=== PATIENT | male | born 2000 | race Caucasian/White ===

== ENCOUNTER 2022-10-16 23:08 | Emergency (ER) | payer BC ==
[~2022-10-16] VITALS: Ht 182.9 cm; Wt 77.3 kg
[2022-10-16 23:16] VITALS: BP 120/61
[2022-10-17] MEDS ORDERED: HYDROcodone/acetaminophen 10/325mg tab PO ONE (00:20)
[2022-10-17] MEDS ORDERED: ketorolac trometh inj. 60 MG/2 ML VIAL IM ONE (00:20)
[2022-10-17] MEDS ORDERED: cephalexin 250mg capsule PO ONE (00:20)
[2022-10-17] MEDS ORDERED: CEPH-585 PO (00:28)
[2022-10-17] MEDS ORDERED: BACI28.42 TOP (00:28)
[2022-10-17] MEDS ORDERED: IBUP-1986 PO (00:28)
[2022-10-17] MEDS ORDERED: SULF1TAB45 PO (17:30)
== END 2022-10-17 00:32 | disposition home or self-care (01) ==
LOC: ER 23:11 → EDBD 23:11 → ER 10-17 00:32
DX: S80.812A Abrasion, left lower leg, initial encounter (principal); S80.811A Abrasion, right lower leg, initial encounter; L03.116 Cellulitis of left lower limb; L03.115 Cellulitis of right lower limb; Z72.89 Other problems related to lifestyle; X50.0XXA Overexertion from strenuous movement or load, initial encounter; Y93.89 Activity, other specified; Y92.89 Other specified places as the place of occurrence of the external cause; Y99.8 Other external cause status
CPT/HCPCS: 96372; 99283; A6222; A6223; J1885; J7030; A6446; A6449

== ENCOUNTER 2022-10-17 16:12 | Emergency (ER) | payer BC, OTHER ==
[~2022-10-17] VITALS: Ht 180.3 cm; Wt 70.5 kg
[~2022-10-17 16:12] MED LIST: BACI28.42 TOP; CEPH-585 PO; IBUP-1986 PO
[2022-10-17] MEDS ORDERED: SULF1TAB45 PO (17:30)
[2022-10-17] MEDS ORDERED: sulfamethoxazole/trimethoprim DS (800/160mg) tablet PO ONE (17:35)
[2022-10-17] MEDS ORDERED: bacitracin 15gm ointment TP ONE (17:35)
[2022-10-17 17:57] VITALS: BP 109/54
== END 2022-10-17 17:59 | disposition home or self-care (01) ==
LOC: ER 16:13
DX: S80.812A Abrasion, left lower leg, initial encounter (principal); S80.811A Abrasion, right lower leg, initial encounter; L03.115 Cellulitis of right lower limb; L03.116 Cellulitis of left lower limb; Z91.018 Allergy to other foods; X58.XXXA Exposure to other specified factors, initial encounter; Y93.89 Activity, other specified; Y92.89 Other specified places as the place of occurrence of the external cause; Y99.8 Other external cause status
CPT/HCPCS: 99283; A6222; A6223; J7030